=== PATIENT | male | born 1965 | race Caucasian/White ===

== ENCOUNTER 2021-12-10 08:53 | Outpatient (CLI) | payer SELFPAY ==
--- NOTE | 2021-12-10 09:05 | CT_ITS ---
STUDY: CT MAXILLOFACIAL SINUSES REASON FOR EXAM: Male, 56 years old. Chronic sinusitis RADIATION DOSAGE (If Supplied By Facility): CTDIvol = ( 33.06 ) mGy, DLP = ( 813.19 ) mGycm TECHNIQUE: The patient was scanned in a multi detector CT scanner. High resolution axial imaging was performed without the administration of intravenous contrast material. Sagittal and coronal images were reconstructed. Individualized dose optimization techniques were used for this CT. COMPARISON: None. FINDINGS: FRONTAL SINUSES: Mild bilateral mucoperiosteal thickening. ETHMOIDAL SINUSES: Moderate bilateral mucoperiosteal thickening MAXILLARY SINUSES: Mild bilateral mucoperiosteal thickening. Mucous retention cyst formation on the right. SPHENOIDAL SINUSES: Normal aeration, without mucosal inflammatory disease. There is patency of the bilateral maxillary infundibuli with normal uncinate processes, ethmoid bullae, and hiatus semilunaris. Normal bilateral middle turbinates. Normal bilateral inferior turbinates. Normal midline nasal septum. There is patency of the bilateral nasal airways. ] Deviation of the nasal septum. The visualized bilateral orbital contents are normal. Mastoid air cells are clear. CT/Sinus/Facial Bone IMPRESSION: Mild to moderate chronic paranasal sinus disease Electronically Signed: Leo Campos MD at 2:09 EST ,
== END 2021-12-10 23:59 | disposition home or self-care (01) ==
PROVIDERS: Referring Provider Otolaryngology; Visit Provider Otolaryngology
DX: J32.9 Chronic sinusitis, unspecified (principal)
CPT/HCPCS: 70486